=== PATIENT | female | born 1960 | race Two or more races ===

== ENCOUNTER 2016-09-21 21:42 | Emergency (ER) | payer MEDICAID, OTHER ==
[~2016-09-21] VITALS: Ht 162.6 cm; Wt 95.0 kg
[~2016-09-21 21:42] MED LIST: CALC1TAB79 PO; CHOL20003 PO; HYDR-906 PO; LEVO125T75 PO; NITR-58 PO; ONDA4TAB14 PO
[2016-09-21 21:45] VITALS: Ht 162.6 cm; Wt 95.0 kg
[2016-09-22] MEDS ORDERED: SOD CHLORIDE 0.9% 1,000 ML IV STA (00:23)
[2016-09-22 00:42] LABS: ADD SCAN DIFF NO
[2016-09-22 00:47] LABS: BASOPHILS % 0.4 % (0.0-2.0); EOSINOPHILS # 0.2 10^3/ul (0.0-0.5); EOSINOPHILS % 3.1 % (0.0-7.0); HEMATOCRIT 34.1 % (37.0-47.0); HEMOGLOBIN 10.5 g/dl (12.0-16.0); LYMPHOCYTES # 1.7 10^3/ul (0.8-2.9); LYMPHOCYTES % 29.8 % (15.0-51.0); MEAN CORPUSCULAR HEMOGLOBIN 23.1 pg (29.0-33.0); MEAN CORPUSCULAR HGB CONC 30.8 g/dl (32.0-37.0); MEAN CORPUSCULAR VOLUME 74.9 fl (82.0-101.0); MONOCYTE # 0.5 10^3/ul (0.3-0.9); MONOCYTES % 8.3 % (0.0-11.0); NEUTROPHIL # 3.2 10^3/ul (1.6-7.5); PLATELET COUNT 257 10^3/UL (140-415); RED BLOOD COUNT 4.55 10^6/ul (4.20-5.40); RED CELL DISTRIBUTION WIDTH 17.8 % (11.5-14.5); WHITE BLOOD COUNT 5.5 10^3/ul (4.8-10.8)
[2016-09-22 01:02] LABS: ALANINE AMINOTRANSFERASE 55 IU/L (13-69); ALBUMIN 3.7 g/dl (3.3-4.9); ALBUMIN/GLOBULIN RATIO 1.15; ALKALINE PHOSPHATASE 138 IU/L (42-121); ANION GAP 13 (8-16); ASPARTATE AMINO TRANSFERASE 34 IU/L (15-46); BILIRUBIN,INDIRECT 0.4 mg/dl (0-1.1); BILIRUBIN,TOTAL 0.4 mg/dl (0.2-1.3); BLOOD UREA NITROGEN 13 mg/dl (7-20); CALCIUM 8.4 mg/dl (8.4-10.2); CARBON DIOXIDE 26 mmol/L (21-31); CHLORIDE 100 mmol/L (97-110); GLUCOSE 336 mg/dl (70-220); POTASSIUM 3.5 mmol/L (3.5-5.1); SODIUM 135 mmol/L (135-144); TOTAL PROTEIN 6.9 g/dl (6.1-8.1)
[2016-09-22 01:13] LABS: TROPONIN-I < 0.012 ng/ml (0.00-0.12)
--- NOTE | 2016-09-22 02:05 | ERD ---
ER Documentation Chief Complaint Date/Time DATE: 09/22/16 TIME: 02:04 Chief Complaint DIZZINESS, HIGH BLOOD SUGAR +HEADACHE BS 355 IN TRIAGE HPI This is a 55-year-old female was noted severely elevated blood sugars in the past 2-3 days. Denies any fevers or chills. Denies any nausea vomiting. Denies any polyuria polydipsia polyphagia. Denies any other current complaints. Patient states he felt mildly nauseous as well. No trauma. No fever. No other current complaints ROS All systems reviewed and are negative except as per history of present illness. Medications Home Meds Active Scripts Nitrofurantoin Monohyd Macrocr* (Macrobid*) 100 Mg Capsr, 100 MG PO BID for 7 Days, CAP Prov:JUAN DIEGO YEN MD 03/23/16 Ondansetron (Ondansetron Odt) 4 Mg Tab.rapdis, 4 MG PO Q6H Y for NAUSEA AND/OR VOMITING, #30 TAB Prov:JUAN DIEGO YEN MD 03/20/16 Reported Medications Calcium Carbonate/Vitamin D3 ([place] 500+D Tablet) 1 Each Tablet, 1 EACH PO DAILY , TAB TAKE 2TAB DAILY AND NEXT WEEK 1TAB DAILY 03/20/16 Hydrocodone/Acetaminophen ([place] 5-325 Tablet) 1 Each Tablet, 1 EACH PO PRN, TAB 03/20/16 Cholecalciferol (Vitamin D3) (VITAMIN D-3) 2,000 Unit Capsule, 2000 UNIT PO DAILY, CAP 03/20/16 Levothyroxine Sodium* (Levothyroxine Sodium*) 125 Mcg Tablet, 125 MCG PO BEFORE BREAKFAST, #30 TAB 03/20/16 Allergies Allergies: Coded Allergies: No Known Allergy (Unverified , 03/20/16) PMhx/Soc History of Surgery: Yes (PARATHYROIDECTOMY, LEFT LUNG TUMOR REMOVED, LEFT COLLAR BONE TUMOR REMOVED) Anesthesia Reaction: No Hx Neurological Disorder: No Hx Respiratory Disorders: No Hx Cardiac Disorders: Yes (HIGH CHOLESTEROL) Hx Psychiatric Problems: No Hx Miscellaneous Medical Probl: Yes (PANCREATIC CA W/ MET LUNG, PARATHYROID, DM1) Hx Alcohol Use: No Hx Substance Use: No Hx Tobacco Use: No Smoking Status: Never smoker Physical Exam Vitals Vital Signs Date Time Temp Pulse Resp B/P Pulse Ox O2 Delivery O2 Flow Rate FiO2 09/22/16 00:30 62 17 138/83 97 Room Air 4/10/17 21:45 97.2 78 16 177/87 96 Physical Exam Const: [] Head: Atraumatic Eyes: Normal Conjunctiva ENT: Normal External Ears, Nose and Mouth. Neck: Full range of motion..~ No meningismus. Resp: Clear to auscultation bilaterally Cardio: Regular rate and rhythm, no murmurs Abd: Soft, non tender, non distended. Normal bowel sounds Skin: No petechiae or rashes Back: No midline or flank tenderness Ext: No cyanosis, or edema Neur: Awake and alert Psych: Normal Mood and Affect Result Diagram: 09/22/16 0029 09/22/16 0029 Results 24 hrs Laboratory Tests Test 09/21/16 21:52 09/22/16 00:29 09/22/16 00:37 Bedside Glucose 355mg/dL 307mg/dL White Blood Count 5.510^3/ul Red Blood Count 4.5510^6/ul Hemoglobin 10.5g/dl Hematocrit 34.1% Mean Corpuscular Volume 74.9fl Mean Corpuscular Hemoglobin 23.1pg Mean Corpuscular Hemoglobin Concent 30.8g/dl Red Cell Distribution Width 17.8% Platelet Count 89652^3/UL Mean Platelet Volume 11.0fl Neutrophils % 58.0% Lymphocytes % 29.8% Monocytes % 8.3% Eosinophils % 3.1% Basophils % 0.4% Nucleated Red Blood Cells % 0.0/100WBC Neutrophils # 3.210^3/ul Lymphocytes # 1.710^3/ul Monocytes # 0.510^3/ul Eosinophils # 0.210^3/ul Basophils # 0.010^3/ul Nucleated Red Blood Cells # 0.010^3/ul Sodium Level 135mmol/L Potassium Level 3.5mmol/L Chloride Level 100mmol/L Carbon Dioxide Level 26mmol/L Anion Gap 13 Blood Urea Nitrogen 13mg/dl Creatinine 0.60mg/dl Glucose Level 336mg/dl Lactic Acid Level 1.5mmol/L Calcium Level 8.4mg/dl Total Bilirubin 0.4mg/dl Direct Bilirubin 0.00mg/dl Indirect Bilirubin 0.4mg/dl Aspartate Amino Transf (AST/SGOT) 34IU/L Alanine Aminotransferase (ALT/SGPT) 55IU/L Alkaline Phosphatase 138IU/L Troponin I < 0.012ng/ml Total Protein 6.9g/dl Albumin 3.7g/dl Globulin 3.20g/dl Albumin/Globulin Ratio 1.15 Current Medications Medications (Trade) Dose Ordered Sig/Rudolph Route PRN Reason Start Time Stop Time Status Last Admin Dose Admin Sodium Chloride (NS) 1,000 ml @ 1,000 mls/hr Q1H STAT IV 09/22/16 00:23 09/22/16 01:22 DC 09/22/16 01:13 Procedures/MDM Medical decision-making: Patient has evidence of UTI likely causing elevation of blood sugar. Patient was treated with ciprofloxacin twice daily. Follow-up with PCP. Advised to have more diligent blood sugar monitoring at home with fingersticks q. hourly. Departure Diagnosis: Primary Impression: Hyperglycemia Additional Impression: UTI (urinary tract infection) Urinary tract infection type: acute cystitis Hematuria presence: without hematuria Qualified Code: N30.00 - Acute cystitis without hematuria Condition: Stable PRAVIN CHOPRA Sep 22, 2016 02:05
[2016-09-22] MEDS ORDERED: CIPR500T4 PO (02:10)
[2016-09-22 02:11] VITALS: BP 150/77; PULSE 70; RESP 16
== END 2016-09-22 02:27 | disposition home or self-care (01) ==
LOC: E/R 21:42
DX: E10.65 Type 1 diabetes mellitus with hyperglycemia (principal); N30.00 Acute cystitis without hematuria; Z85.07 Personal history of malignant neoplasm of pancreas; Z85.118 Personal history of other malignant neoplasm of bronchus and lung
CPT/HCPCS: 36415; 80053; 82962; 83605; 84484; 85025; 93005; J7030; Z7502